=== PATIENT | male | born 1965 | race Two or more races ===

== ENCOUNTER → 2018-08-12 | Outpatient (CLI) | payer OTHER ==
[~2018-08-12] MED LIST: GADOTERATE 7.5 MMOL/15ML VIAL. IVP ONE
--- NOTE | 2018-08-12 15:06 | RAD ---
MRI of the Brain without and with Contrast 08/12/2018 Clinical History: Diplopia left eye. Technique: Unenhanced T1-weighted sagittal and axial and FLAIR, T2-weighted, gradient echo and diffusion-weighted axial images of the brain were obtained. After the intravenous administration of 18 cc of Dotarem, enhanced T1-weighted axial and coronal images of the brain were obtained. Findings: The ventricles and sulci are within normal limits in size and configuration. No area of abnormal signal intensity is seen involving the brain parenchyma. No abnormal area of contrast enhancement is seen. No extra-axial fluid collection is noted. There is no MRI evidence of acute ischemia/infarction. The orbits are within normal limits. Mild to moderate mucosal thickening is seen throughout the paranasal sinuses. There are minimal bilateral mastoid effusions. Normal flow voids are seen within the major vascular structures surrounding the brain parenchyma. Impression: 1. Negative MRI of the brain. 2. Paranasal sinus and mastoid disease. Electronically signed by: Zaire Beltre MD (08/12/2018 3:03 PM) [id number]
== END | disposition home or self-care (01) ==
LOC: MRI 09:03
PROVIDERS: ATTEND Nurse Practitioner Family
DX: H74.8X3 Other specified disorders of middle ear and mastoid, bilateral (principal); J34.89 Other specified disorders of nose and nasal sinuses; H53.2 Diplopia; H53.8 Other visual disturbances
CPT/HCPCS: 70553; A9575